=== PATIENT | male | born 1980 | race Caucasian/White ===

== ENCOUNTER → 2023-10-13 | Outpatient (CLI) | payer BC, SELFPAY ==
--- NOTE | 2023-10-13 | ASPOS_PTH ---
PATIENT: MIR CARMICHAEL LOC: LAB U#:[id number] AGE/SX: 43/M ROOM: RE10/13/[address]: Dr. 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 AM/mr 10/14/2023 COMMENT A fine needle aspiration was performed and the specimen is evaluated at the time of FNA by Dr. Alexis. 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 CYTOLOGY STUDY Slides are reviewed. CYTOLOGY GROSS Received is 0.1 ml of gates material labeled with the patient's name, and designated Left neck mass. 3 imprints and 1 pap are made from the submitted fluid and the rest is added to CytoLyt for cell block preparation. Submitted for cytology study. AM/mr 10/13/23TC:1 CPT: 08868,37257,64316,31955
== END | disposition home or self-care (01) ==
LOC: LAB 09:40
PROVIDERS: Referring Provider Otolaryngology; Visit Provider Otolaryngology
DX: R22.1 Localized swelling, mass and lump, neck (principal)
CPT/HCPCS: 10021; 88161; 88305